=== PATIENT | female | born 1965 | race Caucasian/White ===

== ENCOUNTER 2016-11-14 18:32 | Emergency (ER) | payer MEDICAID, OTHER ==
--- NOTE | 2016-11-14 19:28 | Emergency Department Record ---
History of Present Illness - General Chief Complaint: Abdominal Pain Stated Complaint: LOWER RIGHT SIDE PAIN/VOMITTING Time Seen by Provider: 11/14/16 19:15 Source: Patient Mode of Arrival: Ambulatory - History of Present Illness Initial Comments: Right sided abdominal pain for the past 3 days, worse tonight. Associated with vomiting TNTC times, non-bloody, with diarrhea, also non-bloody. She admits to being off the wagon because her filed for divorce 3 days ago so she began drinking again. She denies f,c, URI symptoms, st, cough, back pain, rashes. She states that last January she had c. difficile infection but was not hospitalized for it, took antibiotics and got better. Onset/Timin -: Days(s) Location: RLQ Radiation: R flank Severity: Moderate Quality: Aching, Sharp Consistency: Constant Improves With: Nothing Associated Symptoms: Diarrhea, Nausea, Vomiting - Related Data Home Medications Medication Instructions Recorded Confirmed Last Taken Disulfiram [Antabuse] 250 mg PO ASDIR 11/14/16 11/14/16 Unknown Previous Rx's Medication Instructions Recorded Dicyclomine HCl [Bentyl] 20 mg PO Q8H #20 cap 11/14/16 Allergies Allergy/AdvReac Type Severity Reaction Status Date / Time No Known Drug Allergies Allergy Verified 10/01/15 17:56 Travel Screening - Travel/Exposure Within Last 30 Days Have you traveled within the last 30 days?: No - Travel/Exposure Within Last Year Have you traveled outside the [place] in the last year?: No - Additonal Travel Details Have you been exposed to anyone with a communicable illness?: No - Travel Symptoms Symptom Screening: None Review of Systems Reviewed: No additional complaints except as noted below Constitutional: Reports: As per HPI. Denies: Chills, Fever, Malaise, Night sweats, Weakness, Weight change Eyes: Reports: As per HPI. Denies: Eye discharge, Eye pain, Photophobia, Vision change ENT: Reports: As per HPI. Denies: Congestion, Dental pain, Ear pain, Epistaxis , Hearing loss, Throat pain Respiratory: Reports: As per HPI. Denies: Cough, Dyspnea, Hemoptysis, Stridor, Wheezes Cardiovascular: Reports: As per HPI. Denies: Arrhythmia, Chest pain, Dyspnea on exertion, Edema, Murmurs, Orthopnea, Palpitations, Paroxysmal nocturnal dyspnea, Rheumatic Fever, Syncope Endocrine: Reports: As per HPI. Denies: Fatigue, Heat or cold intolerance, Polydipsia, Polyuria Gastrointestinal: Reports: As per HPI. Denies: Abdominal pain, Constipation, Diarrhea, Hematemesis, Hematochezia, Melena, Nausea, Vomiting Genitourinary: Reports: As per HPI. Denies: Abnormal menses, Discharge, Dyspareunia, Dysuria, Frequency, Hematuria, Incontinence, Retention, Urgency Musculoskeletal: Reports: As per HPI. Denies: Arthralgia, Back pain, Gout, Joint swelling, Myalgia, Neck pain Skin: Reports: As per HPI. Denies: Bruising, Change in color, Change in hair/ nails, Lesions, Pruritus, Rash Neurological: Reports: As per HPI. Denies: Abnormal gait, Confusion, Headache, Numbness, Paresthesias, Seizure, Tingling, Tremors, Vertigo, Weakness Psychiatric: Reports: As per HPI. Denies: Anxiety, Auditory hallucinations, Depression, Homicidal thoughts, Suicidal thoughts, Visual hallucinations Hematological/Lymphatic: Reports: As per HPI. Denies: Anemia, Blood Clots, Easy bleeding, Easy bruising, Swollen glands Past Medical History - SOCIAL HISTORY Smoking Status: Current every day smoker Alcohol Use Comment: recovering alcholic Drug Use: None - RESPIRATORY Hx Respiratory Disorders: Yes Hx Bronchitis: Yes - CARDIOVASCULAR Hx Cardio Disorders: Yes Comment:: A fib - NEURO Hx Neuro Disorders: No - GI Hx GI Disorders: No - Hx Genitourinary Disorders: Yes Hx Kidney Stones: Yes - ENDOCRINE Hx Endocrine Disorders: Yes Hx Thyroid Disease: Yes Comment:: hiroshiwy - MUSCULOSKELETAL Hx Musculoskeletal Disorders: No - PSYCH Hx Psych Problems: Yes Comment:: alcohol abuse October - HEMATOLOGY/ONCOLOGY Hx Hematology/Oncology Disorders: No Family Medical History Any Significant Family History?: No Hx Cancer: Father Hx Heart Disease: Grandparents Physical Exam - General General Appearance: Alert, Oriented x3, Cooperative, No acute distress, Other ( faint smell of ETOH on breath, no slurring of speech, +cooperative) - Head Head exam: Normal inspection - Eye Eye exam: Normal appearance, PERRL Pupils: Normal accommodation - ENT ENT exam: Normal exam, Mucous membranes moist, Normal external ear exam, Normal orophraynx, TM's normal bilaterally Ear exam: Normal external inspection. negative: External canal tenderness Nasal Exam: Normal inspection. negative: Discharge, Sinus tenderness Mouth exam: Normal external inspection, Tongue normal Teeth exam: Normal inspection. negative: Dental caries Throat exam: Normal inspection. negative: Tonsillar erythema, Tonsillar exudate - Neck Neck exam: Normal inspection, Full ROM. negative: Tenderness - Respiratory Respiratory exam: Normal lung sounds bilaterally. negative: Respiratory distress - Cardiovascular Cardiovascular Exam: Regular rate, Normal rhythm, Normal heart sounds - GI/Abdominal GI/Abdominal exam: Soft, Normal bowel sounds. negative: Tenderness - Rectal Rectal exam: Deferred - exam: Deferred - Extremities Extremities exam: Normal inspection, Full ROM, Normal capillary refill. negative: Tenderness - Back Back exam: Reports: Normal inspection, Full ROM. Denies: Muscle spasm, Rash noted, Tenderness - Neurological Neurological exam: Alert, Normal gait, Oriented X3, Reflexes normal - Psychiatric Psychiatric exam: Normal affect, Normal mood - Skin Skin exam: Dry, Intact, Normal color, Warm Course Vital Signs 11/14/16 18:56 Temperature 98.2 F Pulse Rate 86 Respiratory 20 Rate Blood Pressure 115/82 Pulse Ox 97 - Reevaluation(s) Reevaluation #1: Patient states that her pain level has improved 50%. She was sleeping when I entered the room. 11/14/16 20:30 Reevaluation #2: Patient is much improved after bentyl shot. She agrees to take a stools specimen cup home to bring in to her PCP office tomorrow. She states she had c. difficele last January but was treated as an out patient and improved. She is requesting off work tomorrow. 11/14/16 20:58 Medical Decision Making - Management Options MDM Management: No Additional Work-up Planned (PCP 24 hour follow up) - Data Complexity MDM Data: Labs Ordered and/or Reviewed, X-Ray Ordered and/or Reviewed ( Noncontrast CT Abd/Pelvis: There is wall thickening involving the majority of the colon, especially the proximal portion, suspicious for colitis, infectious or inflamatory processes including c. difficele; ischemic process is less likely given the extent of involvement. The appendix is normal. Per radiologist. ) - Lab Data Result diagrams: 11/14/16 19:21 11/14/16 19:21 Disposition Disposition: Discharge Clinical Impression: Right sided abdominal pain, Colitis, indeterminate Disposition: Home, Self-Care Condition: (1) Good Instructions: Abdominal Pain (ED) Additional Instructions: Call Dr. Gunn office in a.m. to be rechecked for abdominal pain. Bring stool specimen with you for analysis. Take bentyl three times daily for abdominal pain. Cipro script for colitis if instructed by your PCP. Prescriptions: Dicyclomine HCl [Bentyl] 20 mg PO Q8H #20 cap Forms: Patient Portal Access Quality - Quality Measures Quality Measures: N/A - Blood Pressure Screening Does Patient Have Any of the Following: No Blood Pressure Classification: Normal BP Reading Systolic Measurement: 102 Diastolic Measurement: 64 Screening for High Blood Pressure: < Normal BP, F/U Not Required > [G8742]
[2016-11-14] MEDS: KETOROLAC 30 MG/ML VIAL IVP ONE (19:30)
[2016-11-14] MEDS: 0.9 % SODIUM CHLORIDE 1,000 ML BAG IV ONE (19:30)
[2016-11-14] MEDS: LORAZEPAM 2 MG/ML VIAL IV ONE (19:30)
[2016-11-14] MEDS: ONDANSETRON HCL IV 4 MG/2 ML VIAL IV ONE (19:30)
[2016-11-14 19:31] LABS: BASO % 0.7 % (0-6); EOS % 0.5 % (0-6); GRAN % 46.7 % (47-80); HEMATOCRIT 45.4 % (35.0-47.0); HEMOGLOBIN 16.2 gm/dl (11.6-16.0); LYMPH % 41.5 % (16-45); MEAN CELL VOLUME 87.8 fl (81-97); MEAN CORPUSCULAR HEMOGLOBIN 31.3 pg (27-33); MEAN CORPUSCULAR HGB CONC 35.7 g/dl (32-36); MEAN PLATELET VOLUME 9.5 fl (7.4-10.4); MONO % 10.6 % (0-9); PLATELET COUNT 346 K/uL (130-400); RED BLOOD COUNT 5.17 M/uL (3.80-5.40); RED CELL DISTRIBUTION WIDTH 13.4 % (11.5-14.5); URINE APPEARANCE CLEAR; URINE BILIRUBIN NEGATIVE (NEGATIVE); URINE BLOOD TRACE-I (NEGATIVE); URINE COLOR YELLOW; URINE GLUCOSE (UA) NEGATIVE (NEGATIVE); URINE KETONE NEGATIVE (NEGATIVE); URINE LEUKOCYTE ESTERASE NEGATIVE (NEGATIVE); URINE NITRITE NEGATIVE (NEGATIVE); URINE PROTEIN NEGATIVE (NEGATIVE); URINE UROBILINOGEN 0.2 E.U./dL (0.20 - 1.00)
[2016-11-14 19:33] LABS: AMPHETAMINE SCREEN URINE NOT DETECTED; BARBITURATE SCREEN URINE NOT DETECTED; BENZODIAZEPINE SCREEN URINE NOT DETECTED; COCAINE SCREEN URINE NOT DETECTED; HCG,QUALITATIVE URINE NEGATIVE (NEGATIVE); METHADONE SCREEN URINE NOT DETECTED; METHAMPHETAMINE SCREEN NOT DETECTED; OPIATE SCREEN URINE NOT DETECTED; OXYCODONE SCREEN URINE NOT DETECTED; PHENCYCLIDINE SCREEN URINE NOT DETECTED; PROPOXYPHENE SCREEN URINE NOT DETECTED; THC SCREEN URINE NOT DETECTED; TRICYCLIC ANTIDEPRESSANT SCRN NOT DETECTED
[2016-11-14 19:41] LABS: ALBUMIN 4.9 gm/dL (3.5-5.0); ALKALINE PHOSPHATASE 105 U/L (38-126); ALT/SGPT 46 U/L (9-52); ANION GAP 14.1 (7-16); AST/SGOT 28 U/L (14-36); BILIRUBIN,TOTAL 0.92 mg/dL (0.2-1.3); BLOOD UREA NITROGEN 5 mg/dL (7-17); CARBON DIOXIDE 26.9 mmol/L (22-30); CREATININE 0.6 mg/dL (0.52-1.04); EST GLOMERULAR FILTRATION RATE > 60 ml/min; GLUCOSE,RANDOM 100 mg/dL (70-110); LIPASE 65 U/L (23-300); TOTAL PROTEIN 8.4 gm/dL (6.3-8.2)
[2016-11-14] MEDS: DICYCLOMINE HCL 10 MG/ML AMPUL IM ONE (20:39)
--- NOTE | 2016-11-16 13:18 | CT SCAN REPORT ---
EXAM: CT OF THE ABDOMEN AND PELVIS WITHOUT CONTRAST HISTORY: RIGHT LOWER QUADRANT PAIN FOR FOUR DAYS. TECHNIQUE: Routine noncontrast CT images of the abdomen and pelvis were obtained. Comparison: 12/13/11. FINDINGS: Calcified granuloma right lower lobe. The liver is decreased in attenuation consistent with fatty infiltration. There has been previous cholecystectomy. The pancreas, spleen, and adrenals are unremarkable. No renal or ureteral calculi or hydronephrosis. There appears to be wall thickening involving much of the colon more pronounced proximally. There is no prominent pericolonic inflammatory change though findings are suspicious for colitis. The appendix has a normal CT appearance. The bladder is unremarkable. The uterus is present. IUD is noted. The aorta is normal in caliber. No abdominal or pelvic lymphadenopathy. There is a fat containing ventral wall hernia. No acute osseous abnormality. IMPRESSION: 1. THERE IS EVIDENCE FOR COLONIC WALL THICKENING ESPECIALLY WITHIN THE PROXIMAL PORTION. SUSPECT COLITIS WHICH MAY RELATE TO INFECTIOUS OR INFLAMMATORY PROCESSES INCLUDING CLOSTRIDIUM DIFFICILE. ISCHEMIC PROCESSES ARE ALSO POSSIBLE THOUGH FELT TO BE LESS LIKELY GIVEN EXTENT. 2. NORMAL APPEARING APPENDIX. 3. HEPATIC STEATOSIS. JOB NUMBER: [id number] [facility]
== END 2016-11-14 22:01 | disposition home or self-care (01) ==
LOC: ER 18:32
DX: K52.9 Noninfective gastroenteritis and colitis, unspecified (principal); R10.31 Right lower quadrant pain; R11.2 Nausea with vomiting, unspecified; Z79.899 Other long term (current) drug therapy
CPT/HCPCS: 99284; 96374; 96372; 96375; 99285; 83690; 85025; 80076; 80048; 81003; 81025; 80305; 74176; G0480; J1885; J2405; J2060; 80320; J7030